=== PATIENT | male | born 1960 | race African-American/Black ===

== ENCOUNTER 2022-09-19 19:07 | Emergency (ER) | payer MEDICAID, OTHER ==
[~2022-09-19] VITALS: Ht 182.9 cm; Wt 76.0 kg
[2022-09-19 19:09] VITALS: BP 164/97
[2022-09-19] MEDS ORDERED: IBUPROFEN 600MG TABLET PO ONE (19:30)
[2022-09-19] MEDS ORDERED: NAPR-681 MT (21:31)
[2022-09-19] MEDS ORDERED: ACET-2708 MT (21:31)
== END 2022-09-19 23:52 | disposition home or self-care (01) ==
LOC: ER 19:07
DX: S82.292A Other fracture of shaft of left tibia, initial encounter for closed fracture (principal); S82.492A Other fracture of shaft of left fibula, initial encounter for closed fracture; I10 Essential (primary) hypertension; W01.0XXA Fall on same level from slipping, tripping and stumbling without subsequent striking against object, initial encounter; Y93.89 Activity, other specified; Y92.9 Unspecified place or not applicable
CPT/HCPCS: 29505; 73610; 99283; Z7610

== ENCOUNTER 2024-10-29 06:45 | Inpatient (IN) | payer OTHER ==
[~2024-10-29] VITALS: Ht 177.8 cm; Wt 58.5 kg
[2024-10-29] VITALS (10 sets, daily range): BP systolic 118–129; BP diastolic 87–102; PULSE 84–96; RESP 16–36; TEMP 36.4–36.6; O2SAT 98–100
[~2024-10-29 06:45] MED LIST: ACET-2708 MT; NAPR-681 MT
[2024-10-29] MEDS ORDERED: NITROGLYCERIN 0.4MG TABLET SL SL PRN (07:00)
[2024-10-29 07:02] LABS: BASOPHILS % 2.4 % (0.0-2.0); DIFFERENTIAL COMMENT 0; EOSINOPHILS % 2.8 % (0.0-5.0); HEMATOCRIT. 34.8 % (42.0-52.0); HEMOGLOBIN. 11.4 g/dL (14.0-18.0); LYMPHOCYTES % 46.9 % (20.0-50.0); MEAN CORPUSCULAR HEMOGLOBIN 28.6 pg (28.0-32.0); MEAN CORPUSCULAR HGB CONC 32.7 g/dL (31.0-37.0); MEAN CORPUSCULAR VOLUME 87.6 fL (80.0-94.0); MEAN PLATELET VOLUME 8.9 fl (7.4-10.4); MONOCYTES % 5.2 % (2.0-8.0); NEUTROPHILS % 42.7 % (40.0-76.0); PLATELET 180 x1000/uL (130-400); RED BLOOD CELL COUNT 3.98 mill/uL (4.7-6.1); RED CELL DISTRIBUTION WIDTH 15.3 % (11.6-14.6); WHITE BLOOD COUNT 3.8 x1000/uL (4.5-11.0)
[2024-10-29 07:10] LABS: CHLORIDE 112 mEq/L (98-107); POTASSIUM 4.5 mEq/L (3.5-5.1); SODIUM 143 mEq/L (136-145)
[2024-10-29 07:11] LABS: CALCIUM 8.7 mg/dL (8.7-10.4); CARBON DIOXIDE 24 mEq/L (21-32)
[2024-10-29] MEDS: FUROSEMIDE 40MG/4ML VIAL IV ONE (07:11)
[2024-10-29] MEDS: NITROGLYCERIN OINT 1GM/INCH UDPKT TD ONE (07:11)
[2024-10-29 07:16] LABS: CREATININE 2.7 mg/dL (0.6-1.3); GLUCOSE 116 mg/dL (70-105); UREA NITROGEN BLOOD 25 mg/dL (9-23)
[2024-10-29 07:34] LABS: TROPONIN I HIGH SENSITIVITY 118 ng/L (3.0-53)
[2024-10-29] MEDS: CEFTRIAXONE 1GM/50ML 50 ML IV ONE (08:15)
[2024-10-29] MEDS: AZITHROMYCIN 500MG/250ML 250 ML IV SCH (09:00)
[2024-10-29] MEDS ORDERED: ONDANSETRON HCL 4MG/2ML INJ IV PRN (10:15)
[2024-10-29] MEDS ORDERED: AZITHROMYCIN 500MG/250ML 250 ML IV SCH (10:15)
[2024-10-29] MEDS: FUROSEMIDE 40MG/4ML VIAL IVP SCH (10:44)
[2024-10-29 10:47] LABS: BG BASE EXCESS -7.3 mmol/L (-2.0-3.0); BG CARBOXYHEMOGLOBIN 0.7 % (0.5-1.5); BG DEOXYHEMOGLOBIN 0.7 % (0.0-5.0); BG FRACTION INSPIRED OXYGEN 40; BG HCO3 ACT 17.7 mmol/L (21.0-28.0); BG METHEMOGLOBIN 0.3 % (0.5-1.5); BG OXYGEN SATURATION 99.3 % (94.0-98.0); BG OXYHEMOGLOBIN 98.3 % (94.0-98.0); BG PCO2 33.8 mmHg (35.0-48.0); BG PH 7.337 (7.350-7.450); BG PO2 167.6 mmHg (83.0-108.0); BG SAMPLE SITE RIGHT RADIAL; BG TOTAL HEMOGLOBIN 10.9 g/dL (13.5-17.5); BG VENT MODE MASK - BIPAP
[2024-10-29] MEDS: IPRATROPIUM/ALBUTEROL 0.5-3(2.5)MG/3ML NEB HHN SCH (11:13)
[2024-10-29 12:42] LABS: CREATINE KINASE 114 IU/L (46-171)
[2024-10-30] VITALS (17 sets, daily range): BP systolic 105–139; BP diastolic 77–124; PULSE 79–93; RESP 0–24; TEMP 36.3–37.1; O2SAT 95–100
[2024-10-30 06:34] LABS: BASOPHILS % 0.5 % (0.0-2.0); EOSINOPHILS % 1.1 % (0.0-5.0); HEMATOCRIT. 30.6 % (42.0-52.0); HEMOGLOBIN. 10.2 g/dL (14.0-18.0); LYMPHOCYTES % 40.7 % (20.0-50.0); MEAN CORPUSCULAR HEMOGLOBIN 28.3 pg (28.0-32.0); MEAN CORPUSCULAR HGB CONC 33.5 g/dL (31.0-37.0); MEAN CORPUSCULAR VOLUME 84.6 fL (80.0-94.0); MEAN PLATELET VOLUME 9.3 fl (7.4-10.4); MONOCYTES % 6.6 % (2.0-8.0); NEUTROPHILS % 51.1 % (40.0-76.0); PLATELET 149 x1000/uL (130-400); RED BLOOD CELL COUNT 3.61 mill/uL (4.7-6.1); RED CELL DISTRIBUTION WIDTH 15.2 % (11.6-14.6); WHITE BLOOD COUNT 4.5 x1000/uL (4.5-11.0)
[2024-10-30 06:35] LABS: POTASSIUM 4.9 mEq/L (3.5-5.1)
[2024-10-30 06:37] LABS: CALCIUM 8.9 mg/dL (8.7-10.4)
[2024-10-30 06:41] LABS: CREATININE 2.9 mg/dL (0.6-1.3)
[2024-10-30] MEDS ORDERED: CEFTRIAXONE 1GM/50ML 50 ML IV SCH (08:00)
[2024-10-30] MEDS: ASPIRIN 81MG TABLET PO SCH (10:39)
[2024-10-30] MEDS: AZITHROMYCIN 500MG/250ML 250 ML IV SCH (11:26)
[2024-10-30] MEDS: CEFTRIAXONE 1GM/50ML 50 ML IV SCH (15:27)
[2024-10-30] MEDS: FUROSEMIDE 40MG/4ML VIAL IVP SCH (17:30)
[2024-10-30] MEDS: ACETAMINOPHEN 325MG TABLET PO PRN (17:30)
[2024-10-31] VITALS (17 sets, daily range): BP systolic 103–134; BP diastolic 64–101; PULSE 82–93; RESP 11–21; TEMP 35.9–37.3; O2SAT 87–100
[2024-10-31 06:16] LABS: POTASSIUM 4.4 mEq/L (3.5-5.1)
[2024-10-31 06:18] LABS: CALCIUM 8.9 mg/dL (8.7-10.4)
[2024-10-31 06:22] LABS: CREATININE 2.8 mg/dL (0.6-1.3)
[2024-10-31 09:14] LABS: BASOPHILS % 0.5 % (0.0-2.0); EOSINOPHILS % 1.4 % (0.0-5.0); HEMATOCRIT. 29.7 % (42.0-52.0); LYMPHOCYTES % 41.3 % (20.0-50.0); MEAN CORPUSCULAR HEMOGLOBIN 28.9 pg (28.0-32.0); MEAN CORPUSCULAR HGB CONC 33.7 g/dL (31.0-37.0); MEAN CORPUSCULAR VOLUME 85.6 fL (80.0-94.0); MEAN PLATELET VOLUME 9.2 fl (7.4-10.4); MONOCYTES % 7.2 % (2.0-8.0); NEUTROPHILS % 49.6 % (40.0-76.0); PLATELET 152 x1000/uL (130-400); RED BLOOD CELL COUNT 3.46 mill/uL (4.7-6.1); RED CELL DISTRIBUTION WIDTH 14.8 % (11.6-14.6); WHITE BLOOD COUNT 4.4 x1000/uL (4.5-11.0)
[2024-10-31] MEDS: CARVEDILOL 3.125 MG TABLET PO SCH (10:22)
[2024-11-01] VITALS (16 sets, daily range): BP systolic 99–121; BP diastolic 78–99; PULSE 79–95; RESP 13–24; TEMP 36.7–36.9; O2SAT 94–100
[2024-11-01 11:25] LABS: BASOPHILS % 0.6 % (0.0-2.0); EOSINOPHILS % 7.3 % (0.0-5.0); HEMATOCRIT. 33.7 % (42.0-52.0); HEMOGLOBIN. 11.1 g/dL (14.0-18.0); MEAN CORPUSCULAR HEMOGLOBIN 28.3 pg (28.0-32.0); MEAN CORPUSCULAR HGB CONC 32.8 g/dL (31.0-37.0); MEAN CORPUSCULAR VOLUME 86.2 fL (80.0-94.0); MEAN PLATELET VOLUME 9.3 fl (7.4-10.4); MONOCYTES % 5.2 % (2.0-8.0); NEUTROPHILS % 71.9 % (40.0-76.0); PLATELET 180 x1000/uL (130-400); RED BLOOD CELL COUNT 3.91 mill/uL (4.7-6.1); WHITE BLOOD COUNT 3.1 x1000/uL (4.5-11.0)
[2024-11-01 11:32] LABS: POTASSIUM 4.5 mEq/L (3.5-5.1)
[2024-11-01 11:34] LABS: CALCIUM 8.8 mg/dL (8.7-10.4)
[2024-11-01 11:38] LABS: CREATININE 2.3 mg/dL (0.6-1.3)
[2024-11-01] MEDS: EMPAGLIFLOZIN 10MG TABLET PO SCH (12:47)
[2024-11-02] VITALS (17 sets, daily range): BP systolic 92–115; BP diastolic 72–87; PULSE 70–89; RESP 14–21; TEMP 36.3–37.2; O2SAT 97–100
[2024-11-02 07:13] LABS: BASOPHILS % 0.4 % (0.0-2.0); DIFFERENTIAL COMMENT 0; EOSINOPHILS % 7.6 % (0.0-5.0); HEMATOCRIT. 35.9 % (42.0-52.0); HEMOGLOBIN. 11.5 g/dL (14.0-18.0); LYMPHOCYTES % 23.6 % (20.0-50.0); MEAN CORPUSCULAR HEMOGLOBIN 27.4 pg (28.0-32.0); MEAN CORPUSCULAR HGB CONC 32.1 g/dL (31.0-37.0); MEAN CORPUSCULAR VOLUME 85.2 fL (80.0-94.0); MEAN PLATELET VOLUME 8.8 fl (7.4-10.4); MONOCYTES % 6.4 % (2.0-8.0); PLATELET 187 x1000/uL (130-400); RED BLOOD CELL COUNT 4.21 mill/uL (4.7-6.1); RED CELL DISTRIBUTION WIDTH 14.7 % (11.6-14.6); WHITE BLOOD COUNT 4.2 x1000/uL (4.5-11.0)
[2024-11-02 07:35] LABS: POTASSIUM 4.9 mEq/L (3.5-5.1)
[2024-11-02 07:36] LABS: CALCIUM 9.4 mg/dL (8.7-10.4)
[2024-11-02 07:41] LABS: CREATININE 2.2 mg/dL (0.6-1.3)
[2024-11-02 12:46] LABS: BG BASE EXCESS 4.5 mmol/L (-2.0-3.0); BG CARBOXYHEMOGLOBIN 0.5 % (0.5-1.5); BG DEOXYHEMOGLOBIN 3.5 % (0.0-5.0); BG FRACTION INSPIRED OXYGEN 21; BG METHEMOGLOBIN 0.3 % (0.5-1.5); BG OXYGEN SATURATION 96.5 % (94.0-98.0); BG OXYHEMOGLOBIN 95.7 % (94.0-98.0); BG PCO2 37.8 mmHg (35.0-48.0); BG PH 7.488 (7.350-7.450); BG PO2 82.4 mmHg (83.0-108.0); BG SAMPLE SITE RIGHT RADIAL; BG VENT MODE ROOM AIR
[2024-11-03] VITALS (16 sets, daily range): BP systolic 90–133; BP diastolic 68–88; PULSE 74–85; RESP 14–23; TEMP 36.4–37.3; O2SAT 95–100
[2024-11-03] MEDS ORDERED: EMPA10TA PO (14:51)
[2024-11-03] MEDS ORDERED: EMPA10TA MT (14:51)
[2024-11-03] MEDS ORDERED: COR3 PO (14:51)
[2024-11-03] MEDS ORDERED: ASPI-1160 PO (14:51)
[2024-11-03] MEDS: IPRATROPIUM/ALBUTEROL 0.5-3(2.5)MG/3ML NEB HHN PRN (17:00)
[2024-11-04] VITALS (14 sets, daily range): BP systolic 97–116; BP diastolic 67–90; PULSE 71–84; RESP 11–21; TEMP 36.4–36.8; O2SAT 96–100
[2024-11-04 13:48] LABS: POTASSIUM 4.9 mEq/L (3.5-5.1)
[2024-11-04 13:49] LABS: CALCIUM 9.6 mg/dL (8.7-10.4)
[2024-11-04 13:54] LABS: CREATININE 2.5 mg/dL (0.6-1.3)
[2024-11-05] VITALS: BP 109/76; PULSE 79; RESP 15; TEMP 36.4; O2SAT 100
[2024-11-05 02:00] VITALS: PULSE 66; RESP 0; O2SAT 98
[2024-11-05 04:00] VITALS: BP 94/70; PULSE 78; RESP 21; TEMP 36.5; O2SAT 100
[2024-11-05 06:00] VITALS: BP 119/78; PULSE 80; RESP 13; O2SAT 100
[2024-11-05 08:00] VITALS: BP 123/81; PULSE 77; RESP 13; TEMP 36.6; O2SAT 100
[2024-11-05 08:36] VITALS: PULSE 79
[2024-11-06] MEDS ORDERED: FUROSEMIDE 40MG/4ML VIAL IVP SCH (09:00)
== END 2024-11-05 14:51 | disposition home or self-care (01) | DRG 133 ==
LOC: ER 06:45 → EDBEDREQ 06:57 → EDBEDREQTM 07:17 → EDBEDREQ 09:23 → 5EST 15:09
PROVIDERS: ADMIT Internal Medicine; ATTEND Internal Medicine
PROC: 5A09357 Assistance with Respiratory Ventilation, Less than 24 Consecutive Hours, Continuous Positive Airway Pressure (ICD-10-PCS; principal; 2024-10-29)
DX: J96.01 Acute respiratory failure with hypoxia (principal); I21.A1 Myocardial infarction type 2; I50.43 Acute on chronic combined systolic (congestive) and diastolic (congestive) heart failure; J18.9 Pneumonia, unspecified organism; I42.0 Dilated cardiomyopathy; N17.9 Acute kidney failure, unspecified; J44.0 Chronic obstructive pulmonary disease with (acute) lower respiratory infection; I11.0 Hypertensive heart disease with heart failure; J44.1 Chronic obstructive pulmonary disease with (acute) exacerbation; D72.819 Decreased white blood cell count, unspecified; D64.9 Anemia, unspecified; F14.10 Cocaine abuse, uncomplicated; F17.210 Nicotine dependence, cigarettes, uncomplicated; Z82.49 Family history of ischemic heart disease and other diseases of the circulatory system; Z91.148 Patient's other noncompliance with medication regimen for other reason
CPT/HCPCS: 36415; 36600; 71045; 76770; 80048; 82375; 82550; 82805; 83880; 84145; 84484; 85025; 93005; 93306; 94070; 94640; 94660; 94664; 97162; 99291; A4606; J0456; J0696; J1940